=== PATIENT | female | born 1970 | race Caucasian/White ===

== ENCOUNTER 2021-08-24 11:48 | Emergency (ER) | payer MEDICAID ==
[~2021-08-24] VITALS: Ht 165.1 cm; Wt 90.9 kg
[~2021-08-24 11:48] MED LIST: PARO10TA85 PO
[2021-08-24 12:11] VITALS: BP 142/104
[2021-08-24] MEDS ORDERED: ketorolac trometh inj. 60 MG/2 ML VIAL IM ONE (13:25)
[2021-08-24] MEDS ORDERED: diazepam 5mg tablet PO ONE (13:25)
[2021-08-24] MEDS ORDERED: IBUP-1984 PO (14:12)
[2021-08-24] MEDS ORDERED: DIAZ5TAB22 PO (14:12)
== END 2021-08-24 14:49 | disposition home or self-care (01) ==
LOC: ER 11:48
DX: M54.50 Low back pain, unspecified (principal); G89.29 Other chronic pain; M62.830 Muscle spasm of back; Z88.5 Allergy status to narcotic agent; Z79.899 Other long term (current) drug therapy
CPT/HCPCS: 96372; 99283; J1885

== ENCOUNTER 2023-01-21 07:37 | Emergency (ER) | payer MEDICAID ==
[~2023-01-21] VITALS: Ht 162.6 cm; Wt 98.1 kg
[~2023-01-21 07:37] MED LIST changes: +PARO-153 PO; -PARO10TA85 PO
[2023-01-21 07:40] VITALS: BP 156/90; PULSE 89; TEMP 98.5; O2SAT 97
[2023-01-21] MEDS ORDERED: orphenadrine citrate 60mg/2ml inj. IM ONE (08:10)
[2023-01-21] MEDS ORDERED: HYDR-3973 PO (08:10)
[2023-01-21] MEDS ORDERED: ketorolac trometh inj. 60 MG/2 ML VIAL IM ONE (08:10)
[2023-01-21] MEDS ORDERED: HYDROcodone/acetaminophen 5mg/325mg tablet PO ONE ×2 (08:10→08:35)
[2023-01-21] MEDS ORDERED: IBUP-1985 PO ×2 (08:38)
[2023-01-21 08:45] VITALS: RESP 18
== END 2023-01-21 08:50 | disposition home or self-care (01) ==
LOC: ER 07:38
DX: M54.50 Low back pain, unspecified (principal); Z88.5 Allergy status to narcotic agent; Z88.8 Allergy status to other drugs, medicaments and biological substances; Z79.899 Other long term (current) drug therapy
CPT/HCPCS: 96372; 99283; J1885

== ENCOUNTER 2023-05-29 14:24 | Emergency (ER) | payer MEDICAID ==
[~2023-05-29] VITALS: Ht 162.6 cm; Wt 91.4 kg
[~2023-05-29 14:24] MED LIST changes: +IBUP-1985 PO
[2023-05-29 14:26] VITALS: TEMP 98.6
[2023-05-29] MEDS: magnesium citrate 296ml oral solution PO ONE (17:14)
[2023-05-29] MEDS: ondansetron 4mg rapidly disintigrating tab PO ONE (17:14)
[2023-05-29 17:18] LABS: URINE HCG NEGATIVE (NEG)
[2023-05-29 17:21] LABS: BILIRUBIN,URINE SMALL (Neg); CLARITY,URINE CLOUDY (Clear); COLOR,URINE YELLOW (Yellow); GLUCOSE, URINE NEGATIVE (Neg); KETONES,URINE TRACE mg/dl (Neg); LEUKOCYTE ESTERASE ,URINE NEGATIVE (Neg); NITRITES, URINE NEGATIVE (Neg); OCCULT BLOOD,URINE TRACE-INTACT (Neg); PH,URINE 5.5 (4.8-8.0); PROTEIN,URINE TRACE mg/dl (Neg); UROBILINOGEN,URINE 0.2 E.U/dL (0.2-1.0)
[2023-05-29 17:46] LABS: UA COLLECTION TYPE CLN CATCH MIDSTREAM
[2023-05-29 17:47] LABS: MUCUS STRANDS MANY /LPF (Neg); SQUAMOUS EPITHELIAL CELL,UR MANY /LPF (FEW)
[2023-05-29 17:48] LABS: BACTERIA,URINE 2+ /HPF (Neg); WBC,URINE 50-100 /HPF (0-4)
[2023-05-29 18:16] LABS: MEAN CORPUSCULAR HGB CONC 33.2 g/dL (33.0-36.5); MEAN CORPUSCULAR VOLUME 86.9 FL (78-98); MEAN PLATELET VOLUME 8.8 FL (7.4-10.4)
[2023-05-29 18:18] LABS: BASOPHILS % (AUTO) 0.3 % (0-1); EOSINOPHILS # (AUTO) 0.1 X10'3 (0-0.9); EOSINOPHILS % (AUTO) 1.3 % (0-6); HEMATOCRIT 39.4 % (35.0-45.0); HEMOGLOBIN 13.1 g/dl (12.0-16.0); LYMPHOCYTES # (AUTO) 2.5 X10'3 (1.1-4.8); LYMPHOCYTES % (AUTO) 23.5 % (21-51); MEAN CORPUSCULAR HEMOGLOBIN 28.9 PG (27.0-31.0); MONOCYTES # (AUTO) 0.5 X10'3 (0-0.9); MONOCYTES % (AUTO) 4.2 % (2-12); NEUTROPHILS # (AUTO) 7.6 X10'3 (1.8-7.7); NEUTROPHILS % (AUTO) 70.7 % (42-75); PLATELET COUNT 333 X10'3 (140-440); RED BLOOD COUNT 4.53 X10'6 (4.20-5.60); RED CELL DISTRIBUTION WIDTH 15.1 % (11.5-14.5); WHITE BLOOD COUNT 10.7 X10'3 (4.5-11.0)
[2023-05-29 18:28] LABS: ALANINE AMINOTRANSFERASE 22 U/L (12-78); ALBUMIN 3.5 G/DL (3.4-5.0); ALBUMIN/GLOBULIN RATIO 0.8 (1.1-1.5); ALKALINE PHOSPHATASE 113 IU/L (46-116); ANION GAP 9 (8-16); ASPARTATE AMINO TRANSFERASE 12 U/L (10-37); BILIRUBIN,TOTAL 0.4 MG/DL (0.1-1.0); BLOOD UREA NITROGEN 11 MG/DL (7-18); BUN/CREATININE RATIO 12.4 (10.0-20.0); CHLORIDE 104 MMOL/L (99-107); CREATININE 0.89 MG/DL (0.40-0.90); GLUCOSE 94 MG/DL (70-104); LIPASE 32 U/L (16-77); POTASSIUM 3.7 MMOL/L (3.5-5.1); SODIUM 142 MMOL/L (135-145); TOTAL CARBON DIOXIDE 28.7 MMOL/L (24-32); TOTAL PROTEIN 7.9 G/DL (6.4-8.2); eCRCL 65 ML/MIN; eGFR 67 ML/MIN
[2023-05-29 18:44] VITALS: BP 163/136; PULSE 76; RESP 14; O2SAT 98
== END 2023-05-29 18:46 | disposition home or self-care (01) ==
LOC: ER 14:24
DX: K59.00 Constipation, unspecified (principal); R10.30 Lower abdominal pain, unspecified; Z88.5 Allergy status to narcotic agent; Z79.899 Other long term (current) drug therapy
CPT/HCPCS: 36415; 74018; 80053; 81001; 81025; 83690; 85025; 99284

== ENCOUNTER 2023-11-02 08:02 | Emergency (ER) | payer MEDICAID ==
[~2023-11-02] VITALS: Ht 160 cm; Wt 89.1 kg
[2023-11-02 08:58] LABS: ALANINE AMINOTRANSFERASE 20 U/L (12-78); ALBUMIN 3.3 G/DL (3.4-5.0); ALBUMIN/GLOBULIN RATIO 0.8 (1.1-1.5); ALKALINE PHOSPHATASE 110 IU/L (46-116); ANION GAP 8 (8-16); ASPARTATE AMINO TRANSFERASE 18 U/L (10-37); BILIRUBIN,TOTAL 0.2 MG/DL (0.1-1.0); BLOOD UREA NITROGEN 10 MG/DL (7-18); BUN/CREATININE RATIO 12.2 (10.0-20.0); CALCIUM 9.2 MG/DL (8.5-10.1); CHLORIDE 105 MMOL/L (99-107); CREATININE 0.82 MG/DL (0.40-0.90); GLUCOSE 112 MG/DL (70-104); POTASSIUM 3.9 MMOL/L (3.5-5.1); SODIUM 136 MMOL/L (135-145); TOTAL CARBON DIOXIDE 22.7 MMOL/L (24-32); TOTAL PROTEIN 7.6 G/DL (6.4-8.2); eCRCL 68 ML/MIN; eGFR 74 ML/MIN
[2023-11-02] MEDS: HYDROmorphone 1 mg/ml syringe IV ONE (09:04)
[2023-11-02] MEDS ORDERED: ondansetron/PF 4mg/2ml inj IM ONE (09:15)
[2023-11-02 09:18] LABS: BASOPHILS % (AUTO) 0.6 % (0-1); EOSINOPHILS # (AUTO) 0.1 X10'3 (0-0.9); EOSINOPHILS % (AUTO) 1.6 % (0-6); HEMATOCRIT 40.2 % (35.0-45.0); HEMOGLOBIN 12.7 g/dl (12.0-16.0); LYMPHOCYTES # (AUTO) 2.7 X10'3 (1.1-4.8); LYMPHOCYTES % (AUTO) 36.7 % (21-51); MEAN CORPUSCULAR HEMOGLOBIN 26.6 PG (27.0-31.0); MEAN CORPUSCULAR HGB CONC 31.7 g/dL (33.0-36.5); MONOCYTES # (AUTO) 0.5 X10'3 (0-0.9); MONOCYTES % (AUTO) 6.6 % (2-12); NEUTROPHILS % (AUTO) 54.5 % (42-75); PLATELET COUNT 296 X10'3 (140-440); RED BLOOD COUNT 4.78 X10'6 (4.20-5.60); RED CELL DISTRIBUTION WIDTH 16.5 % (11.5-14.5); WHITE BLOOD COUNT 7.3 X10'3 (4.5-11.0)
[2023-11-02] MEDS: ondansetron/PF 4mg/2ml inj IV ONE (09:26)
[2023-11-02 09:57] LABS: PRO BRAIN NATRIURETIC PEPTIDE < 30 PG/ML (0-125)
[2023-11-02] MEDS ORDERED: iohexol 350MG/ML 100ml bottle IV ONE ×2 (10:30→10:32)
[2023-11-02 11:02] LABS: LIPASE 60 U/L (16-77)
[2023-11-02 11:32] LABS: URINE HCG NEGATIVE (NEG)
[2023-11-02] MEDS ORDERED: SUCR1TAB PO (12:08)
[2023-11-02 12:53] VITALS: BP 113/80; PULSE 75; RESP 18; TEMP 97; O2SAT 98
== END 2023-11-02 13:04 | disposition home or self-care (01) ==
LOC: ER 08:02
DX: R07.89 Other chest pain (principal); R10.13 Epigastric pain; G89.29 Other chronic pain; M54.9 Dorsalgia, unspecified; Z88.5 Allergy status to narcotic agent; Z79.899 Other long term (current) drug therapy; Z79.1 Long term (current) use of non-steroidal anti-inflammatories (NSAID)
CPT/HCPCS: 36415; 71045; 71275; 74174; 80053; 81025; 83690; 83880; 84484; 85025; 93005; 96374; 96375; 99285; J1170; J2405; Q9967

== ENCOUNTER 2023-12-05 21:10 | Emergency (ER) | payer MEDICAID ==
[~2023-12-05] VITALS: Ht 162.6 cm; Wt 85.0 kg
[~2023-12-05 21:10] MED LIST changes: +SUCR1TAB PO
[2023-12-05] MEDS ORDERED: ondansetron inj. 24 MG in normal saline 250ml IV soln 228 ML IV SCH (21:25)
[2023-12-05 21:29] LABS: BASOPHILS # (AUTO) 0.1 X10'3 (0-0.2); BASOPHILS % (AUTO) 1.3 % (0-1); EOSINOPHILS # (AUTO) 0.1 X10'3 (0-0.9); EOSINOPHILS % (AUTO) 1.9 % (0-6); HEMATOCRIT 35.2 % (35.0-45.0); HEMOGLOBIN 11.5 g/dl (12.0-16.0); LYMPHOCYTES # (AUTO) 2.9 X10'3 (1.1-4.8); MEAN CORPUSCULAR HGB CONC 32.7 g/dL (33.0-36.5); MEAN CORPUSCULAR VOLUME 82.7 FL (78-98); MEAN PLATELET VOLUME 8.1 FL (7.4-10.4); MONOCYTES # (AUTO) 0.4 X10'3 (0-0.9); MONOCYTES % (AUTO) 4.9 % (2-12); NEUTROPHILS % (AUTO) 52.9 % (42-75); PLATELET COUNT 306 X10'3 (140-440); RED BLOOD COUNT 4.26 X10'6 (4.20-5.60); RED CELL DISTRIBUTION WIDTH 16.8 % (11.5-14.5); WHITE BLOOD COUNT 7.5 X10'3 (4.5-11.0)
[2023-12-05 21:49] LABS: ALANINE AMINOTRANSFERASE 22 U/L (12-78); ALBUMIN 3.3 G/DL (3.4-5.0); ALBUMIN/GLOBULIN RATIO 0.8 (1.1-1.5); ALKALINE PHOSPHATASE 115 IU/L (46-116); ANION GAP 8 (8-16); ASPARTATE AMINO TRANSFERASE 15 U/L (10-37); BILIRUBIN,TOTAL 0.3 MG/DL (0.1-1.0); BLOOD UREA NITROGEN 12 MG/DL (7-18); BUN/CREATININE RATIO 12.9 (10.0-20.0); CALCIUM 8.5 MG/DL (8.5-10.1); CHLORIDE 106 MMOL/L (99-107); CREATININE 0.93 MG/DL (0.40-0.90); GLUCOSE 159 MG/DL (70-104); LIPASE 52 U/L (16-77); POTASSIUM 3.8 MMOL/L (3.5-5.1); SODIUM 139 MMOL/L (135-145); TOTAL CARBON DIOXIDE 24.9 MMOL/L (24-32); TOTAL PROTEIN 7.4 G/DL (6.4-8.2); eCRCL 62 ML/MIN; eGFR 64 ML/MIN
[2023-12-05 22:05] LABS: URINE HCG NEGATIVE (NEG)
[2023-12-05 22:06] LABS: BILIRUBIN,URINE NEGATIVE (Neg); CLARITY,URINE CLEAR (Clear); COLOR,URINE YELLOW (Yellow); GLUCOSE, URINE NEGATIVE (Neg); KETONES,URINE TRACE mg/dl (Neg); LEUKOCYTE ESTERASE ,URINE NEGATIVE (Neg); NITRITES, URINE NEGATIVE (Neg); OCCULT BLOOD,URINE NEGATIVE (Neg); PROTEIN,URINE TRACE mg/dl (Neg); UROBILINOGEN,URINE 0.2 E.U/dL (0.2-1.0)
[2023-12-05 22:10] LABS: UA COLLECTION TYPE CLN CATCH MIDSTREAM
[2023-12-05 22:12] LABS: BACTERIA,URINE 1+ /HPF (Neg); MUCUS STRANDS MANY /LPF (Neg); SQUAMOUS EPITHELIAL CELL,UR MODERATE /LPF (FEW); WBC,URINE 0-4 /HPF (0-4)
[2023-12-05] MEDS: HYDROmorphone 1 mg/ml syringe IV ONE (22:25)
[2023-12-05] MEDS: normal saline 1000ml 1,000 ML IV ONE (22:25)
[2023-12-05] MEDS ORDERED: DOCU-148 PO (22:29)
[2023-12-05] MEDS ORDERED: BISA10SU60 RC (22:29)
[2023-12-05] MEDS: ondansetron/PF 4mg/2ml inj IV ONE (22:30)
[2023-12-05 22:52] VITALS: BP 111/78; PULSE 69; RESP 14; TEMP 98; O2SAT 69
== END 2023-12-05 22:54 | disposition home or self-care (01) ==
LOC: ER 21:11
DX: K59.00 Constipation, unspecified (principal); R10.11 Right upper quadrant pain; Z88.5 Allergy status to narcotic agent; Z79.899 Other long term (current) drug therapy
CPT/HCPCS: 36415; 74022; 80053; 81001; 81025; 83690; 85025; 96374; 99284; J1170; J7030